=== PATIENT | male | born 1975 | race Caucasian/White ===

== ENCOUNTER 2025-01-04 10:00 | Inpatient (IN) | payer OTHER ==
[~2025-01-04] VITALS: Ht 193 cm; Wt 113.6 kg
[2025-01-04] MEDS ORDERED: FLUO-418 PO (10:13)
[2025-01-04] MEDS ORDERED: METOPROLOL PO (10:13)
[2025-01-04] MEDS ORDERED: VALS1TAB81 PO (10:13)
[2025-01-04 11:05] LABS: BASOPHILS % (AUTO) 1.1 % (0.0-2.0); EOSINOPHILS % (AUTO) 3.2 % (1.0-6.0); HEMATOCRIT 46.1 % (41-53); HEMOGLOBIN 15.6 g/dL (13.5-17.5); LYMPHOCYTES # (AUTO) 3.7 K/uL (1.0-4.8); LYMPHOCYTES % (AUTO) 33.3 % (22.0-44.0); MEAN CORPUSCULAR HEMOGLOBIN 32.4 pg (26.0-34.0); MEAN CORPUSCULAR HGB CONC 33.8 G/dL (31.0-37.0); MEAN CORPUSCULAR VOLUME 96 fL (80-100); MONOCYTES # (AUTO) 0.7 K/uL (0.1-1.0); MONOCYTES % (AUTO) 6.6 % (2.0-9.0); NEUTROPHILS # (AUTO) 6.2 K/uL (1.8-7.7); NEUTROPHILS % (AUTO) 55.8 % (40.0-70.0); PLATELET COUNT (AUTO) 268 K/uL (150-450); RED CELL DISTRIBUTION WIDTH 13.2 % (11.5-14.5); WHITE BLOOD COUNT (AUTO) 11.2 K/uL (4.5-11.0)
[2025-01-04 11:10] LABS: ANION GAP 4 mmol/L (8-16); CALCIUM, TOTAL 9.8 mg/dL (8.8-10.5); CARBON DIOXIDE 28 mmol/L (22-29); CHLORIDE 106 mmol/L (98-107); CREATININE 0.87 mg/dL (0.60-1.30); GLOMERULAR FILTR. RATE CALC > 60 mL/min (>60); GLUCOSE,RANDOM 109 mg/dL (70-110); POTASSIUM 4.1 mmol/L (3.5-5.1); SODIUM SERUM 138 mmol/L (136-145); UREA NITROGEN, BLOOD 14 mg/dL (7-18)
[2025-01-04] MEDS: VANCOMYCIN 1.75GM/WATER(PEG) 350 ML IV ONE (12:11)
[2025-01-04] MEDS: ONDANSETRON HCL 4 MG/2 ML VIAL IVP ONE (12:11)
[2025-01-04] MEDS: HYDROmorphone HCL 2 MG/ML SYRINGE IVP ONE (12:11)
[2025-01-04 14:01] VITALS: BP 113/90; PULSE 87; RESP 17; TEMP 97.7; O2SAT 98
[2025-01-04] MEDS ORDERED: ACETAMINOPHEN 325 MG TABLET PO PRN (15:15)
[2025-01-04] MEDS ORDERED: BISACODYL 10 MG RECTAL RECTAL SUPPOSITORY PR PRN (15:15)
[2025-01-04] MEDS ORDERED: MAGNESIUM HYDROXIDE SUSPENSION 30 ML UDCUP PO PRN (15:15)
[2025-01-04] MEDS ORDERED: ONDANSETRON HCL 4 MG/2 ML VIAL IVP PRN (15:15)
[2025-01-04] MEDS ORDERED: ZOLPIDEM TARTRATE 5 MG TABLET PO PRN (15:15)
[2025-01-04] MEDS: HYDROCODONE/ACETAMINOPHEN 5-325 MG TABLET PO PRN (15:19)
[2025-01-04] MEDS: HEPARIN SODIUM,PORCINE 5,000 UNITS/ML VIAL SQ SCH (16:34)
[2025-01-04 20:19] VITALS: BP 137/94; PULSE 79; RESP 18; TEMP 97.5; O2SAT 97
[2025-01-04] MEDS: DOCUSATE SODIUM 100 MG CAPSULE PO SCH (20:25)
[2025-01-04] MEDS: MORPHINE SULFATE 2 MG/ML SYRINGE IVP PRN (20:26)
[2025-01-04] MEDS: VANCOMYCIN 1.25 GM/WATER(PEG) 250 ML IV SCH (23:38)
[2025-01-05 05:47] VITALS: BP 129/91; PULSE 69; RESP 18; TEMP 97.5; O2SAT 95
[2025-01-05 08:02] VITALS: BP 120/86; PULSE 84; RESP 18; TEMP 97.8; O2SAT 95
[2025-01-05] MEDS: FLUoxetine HCL 20 MG CAPSULE PO SCH (08:47)
[2025-01-05] MEDS: VALSARTAN 160 MG TABLET PO SCH (08:47)
[2025-01-05] MEDS: hydroCHLOROthiazide 25 MG TABLET PO SCH (08:47)
[2025-01-05] MEDS: PANTOPRAZOLE SODIUM 40 MG DR TABLET PO SCH (08:47)
[2025-01-05] MEDS ORDERED: SODIUM CHLORIDE 0.9% 500 ML IV ONE (08:48)
[2025-01-05 08:53] LABS: ANION GAP 4 mmol/L (8-16); CARBON DIOXIDE 27 mmol/L (22-29); CHLORIDE 106 mmol/L (98-107); CREATININE 0.83 mg/dL (0.60-1.30); GLOMERULAR FILTR. RATE CALC > 60 mL/min (>60); GLUCOSE,RANDOM 95 mg/dL (70-110); POTASSIUM 4.2 mmol/L (3.5-5.1); SODIUM SERUM 136 mmol/L (136-145); UREA NITROGEN, BLOOD 14 mg/dL (7-18)
[2025-01-05] MEDS ORDERED: [UNRECOGNIZED DRUG - OTHER] PO SCH (09:00)
== END 2025-01-05 15:55 | disposition left against medical advice (07) | DRG 344 ==
LOC: EMS 10:00 → EDH 12:10 → UNDOADMIN 12:40 → EDH 12:40 → 4E 13:50
PROVIDERS: ADMIT Internal Medicine; ATTEND Internal Medicine
DX: M86.8X7 Other osteomyelitis, ankle and foot (principal); F17.210 Nicotine dependence, cigarettes, uncomplicated; L03.032 Cellulitis of left toe; G62.9 Polyneuropathy, unspecified; I10 Essential (primary) hypertension
CPT/HCPCS: 80048; 83036; 85025; 87070; 87205; 93005; 99285; G0378; J1171; J1644; J2270; J2405; J7040